=== PATIENT | female | born 1990 | race Caucasian/White ===

== ENCOUNTER 2019-02-18 15:22 | Emergency (ER) | payer SELFPAY ==
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
== END 2019-02-18 16:24 | disposition home or self-care (01) ==
LOC: NAV ERS 15:22
DX: S40.022A Contusion of left upper arm, initial encounter (principal); R07.9 Chest pain, unspecified; F41.9 Anxiety disorder, unspecified; F17.210 Nicotine dependence, cigarettes, uncomplicated; R07.89 Other chest pain; Y04.0XXA Assault by unarmed brawl or fight, initial encounter